=== PATIENT | female | born 1970 ===

== ENCOUNTER 2017-09-25 18:23 | Emergency (ER) | payer OTHER ==
--- NOTE | 2017-09-25 19:45 | C.PDOC ---
History Of Present Illness 47 year old female presents to the ED for evaluation of cough and congestion which began 8 days ago. She was evaluated by her PMD 1 week ago and was informed that her symptoms are viral. Patient has been taking Ibuprofen at home with minimal relief and states that her symptoms persist. She denies fever, chills, chest pain, shortness of breath, nausea, vomiting. Time Seen by Provider: 09/25/17 19:17 Chief Complaint (Nursing): Cough, Cold, Congestion History Per: Patient History/Exam Limitations: no limitations Onset/Duration Of Symptoms: Days (8) Current Symptoms Are (Timing): Still Present Associated Symptoms: Cough, Nasal Congestion. denies: Fever, Chills, Nausea, Vomiting Additional History Per: Patient Past Medical History Reviewed: Historical Data, Nursing Documentation, Vital Signs Vital Signs: Last Vital Signs Temp 98.1 F 09/25/17 19:51 Pulse 72 09/25/17 19:51 Resp 18 09/25/17 19:51 BP 107/71 09/25/17 19:51 Pulse Ox 97 09/25/17 21:58 - Medical History PMH: No Chronic Diseases Surgical History: No Surg Hx Family History: States: Unknown Family Hx - Social History Hx Alcohol Use: No Hx Substance Use: No - Immunization History Hx Tetanus Toxoid Vaccination: No Hx Influenza Vaccination: No Review Of Systems Constitutional: Negative for: Fever, Chills ENT: Positive for: Nose Congestion Cardiovascular: Negative for: Chest Pain Respiratory: Positive for: Cough. Negative for: Shortness of Breath Gastrointestinal: Negative for: Nausea, Vomiting Physical Exam - Physical Exam Appears: Non-toxic, No Acute Distress Skin: Normal Color, Warm, Dry Head: Atraumatic, Normacephalic Eye(s): bilateral: Normal Inspection, EOMI Ear(s): Bilateral: Normal Nose: Normal, No Discharge Oral Mucosa: Moist Throat: Normal, No Erythema, No Exudate Neck: Normal ROM, Supple Chest: Symmetrical, No Deformity, No Tenderness Cardiovascular: Rhythm Regular Respiratory: Normal Breath Sounds, No Rales, No Rhonchi, No Wheezing Extremity: Normal ROM, Capillary Refill (less than 2 seconds ) Neurological/Psych: Oriented x3, Normal Speech, Normal Cognition Gait: Steady ED Course And Treatment O2 Sat by Pulse Oximetry: 97 (on RA) Pulse Ox Interpretation: Normal - Radiology CXR: Interpreted by Me, Viewed By Me CXR Interpretation: Yes: No Acute Disease Progress Note: On reassessment, patient is resting comfortably, showing no signs of respiratory distress and is stable for discharge. Patient is advised to f/u with PMD within 1-2 days for further evaluation and/or return to the ED if symptoms persist or worsen. Disposition - Disposition Disposition: HOME/ ROUTINE Disposition Time: 19:44 Condition: STABLE Additional Instructions: Follow up with your primary medical doctor or clinic in 2-5 days for further evaluation. Take medications as prescribed. Return to the emergency department at any time if symptoms persist or worsen. 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 - Scribe Statement The provider has reviewed the documentation as recorded by the Scribe (Mena Whitfield) All medical record entries made by the Scribe were at my direction and personally dictated by me. I have reviewed the chart and agree that the record accurately reflects my personal performance of the history, physical exam, medical decision making, and the department course for this patient. I have also personally directed, reviewed, and agree with the discharge instructions and disposition.
[2017-09-25 19:52] VITALS: BP 107/71; PULSE 72; RESP 18; TEMP 98.1
[2017-09-25 21:56] VITALS: O2SAT 97
--- NOTE | 2017-09-26 08:57 | RAD ---
Chest x-ray two views History: Chest pain. Comparison: None available. Findings: Bibasilar breast and nipple shadows. Mild patchy increased markings in the right infrahilar region. Heart size within normal limits. Impression: Mild patchy increased markings in the right infrahilar region. Clinical correlation.
== END 2017-09-25 19:57 | disposition home or self-care (01) ==
LOC: C.ER 18:23
DX: J40 Bronchitis, not specified as acute or chronic (principal)